=== PATIENT | female | born 1975 | race Caucasian/White ===

== ENCOUNTER 2022-02-27 08:19 | Emergency (ER) | payer OTHER ==
[~2022-02-27] VITALS: Ht 160 cm; Wt 68.4 kg
[2022-02-27] MEDS ORDERED: AMOX500C PO (08:32)
[2022-02-27] MEDS ORDERED: NS 1,000 ML IV ONE (11:45)
[2022-02-27] MEDS ORDERED: KETOROLAC 30 MG/ML 1ML VIAL IV ONE (11:45)
[2022-02-27] MEDS ORDERED: dexameTHASONE 20MG/5ML VIAL (J1100 PER 1MG) IV ONE (11:45)
[2022-02-27 12:10] LABS: BASO % 0.5 % (0.0-1.0); EOS % 0.7 % (0.0-3.0); HEMATOCRIT 39.9 % (36.0-47.0); LYMPH # 2.1 10^3/uL (1.5-5.0); LYMPH % 35.2 % (24.0-44.0); MEAN CORPUSCULAR HEMOGLOBIN 30.2 pg (27.0-33.0); MEAN CORPUSCULAR HGB CONC 32.6 g/dl (32.0-36.5); MEAN CORPUSCULAR VOLUME 92.8 fl (80.0-96.0); MONO # 0.4 10^3/uL (0.0-0.8); MONO % 6.3 % (2.0-8.0); NEUTROPHILS # 3.3 10^3/uL (1.5-8.5); PLATELET COUNT, AUTOMATED 303 10^3/uL (150-450); WHITE BLOOD COUNT 5.9 10^3/uL (4.0-10.0)
[2022-02-27] MEDS ORDERED: ISOVUE-370 76% 100ML VIAL As Ordered ONE (12:15)
[2022-02-27 12:38] LABS: MONO SCRN NEGATIVE (NEGATIVE)
[2022-02-27 12:51] LABS: ALBUMIN 3.8 GM/DL (3.2-5.2); ALT/SGPT 15 U/L (12-78); BILIRUBIN,DIRECT < 0.1 MG/DL (0.0-0.2); BILIRUBIN,TOTAL 0.3 MG/DL (0.2-1.0); C REACTIVE PROTEIN QUANTITATIV < 0.30 MG/DL (0.00-0.30); LIPASE 88 U/L (73-393); TOTAL PROTEIN 7.7 GM/DL (6.4-8.2)
[2022-02-27] MEDS ORDERED: LIDOCAINE VISCOUS 2% SOLN 15ML UDC SSP ONE (12:55)
[2022-02-27] MEDS ORDERED: KETO10TAB PO (13:06)
[2022-02-27] MEDS ORDERED: LIDO2SOL9 PO (13:14)
[2022-02-27 13:19] VITALS: BP 140/82
[2022-02-27 13:45] LABS: ERYTHROCYTE SEDIMENTATION RATE 17 mm/hr (0-20)
== END 2022-02-27 13:26 | disposition home or self-care (01) ==
LOC: M ED 08:19
DX: J09.X2 Influenza due to identified novel influenza A virus with other respiratory manifestations (principal); J03.90 Acute tonsillitis, unspecified
CPT/HCPCS: 70491; 80047; 80076; 83690; 85025; 85652; 86140; 86308; 87428; 96361; 96374; 96375; 99284; J1100; J1885; Q9967